=== PATIENT | female | born 1995 | race Caucasian/White ===

== ENCOUNTER 2019-01-29 04:11 | Emergency (ER) | payer OTHER ==
[2019-01-29 04:22] VITALS: RESP 18
[2019-01-29] MEDS ORDERED: diphenhydrAMINE 50 MG/ML 1 ML VIAL IVP STA (04:33)
[2019-01-29] MEDS ORDERED: KETOROLAC 30 MG/ML 1 ML VIAL IVP STA (04:33)
[2019-01-29] MEDS ORDERED: AMOXIC-POT CLAV 875-125MG 1 EACH TAB PO STA (04:34)
--- NOTE | 2019-01-29 04:39 | ED ---
ENT HPI - General Chief complaint: Dental/Oral Stated complaint: Oral Pain/Migraine Time Seen by Provider: 01/29/19 04:24 Source: patient Mode of arrival: ambulatory Limitations: no limitations - History of Present Illness Initial comments: This patient is 23-year-old woman who presents to be evaluated for dental pain and a headache she believes is related to the dental pain. She states that things started a few days ago with left mandibular tooth pain. She states that she does know she has a tooth fracture and that this tooth started hurting numb er days ago. She states she also has been told she has impacted wisdom tooth. She states that she does have follow-up scheduled with the dentist but the pain became more severe over the course tonight. She denies fever or chills. No eye or vision symptoms. MD complaint: tooth pain -: days(s) Location: tooth # (19) Severity: severe Quality: aching Consistency: constant Improves with: none Worsens with: none Associated Symptoms: toothache - Related Data Previous Rx's Medication Instructions Recorded Amoxicillin 875 mg PO Q12HR #14 tablet 01/29/19 traMADol HCl [Ultram] 50 mg PO Q6H PRN #15 tab 01/29/19 Allergies Allergy/AdvReac Type Severity Reaction Status Date / Time No Known Allergies Allergy Verified 01/29/19 04:22 Review of Systems ROS Statement: Those systems with pertinent positive or pertinent negative responses have been documented in the HPI. ROS Other: All systems not noted in ROS Statement are negative. Constitutional: Denies: fever, chills Eyes: Denies: eye pain, vision change ENT: Reports: dental pain. Denies: ear pain, throat pain Respiratory: Denies: cough, dyspnea Cardiovascular: Denies: chest pain, palpitations Gastrointestinal: Denies: abdominal pain, vomiting Neurological: Reports: as per HPI, headache. Denies: weakness, numbness, paresthesias, confusion Past Medical History Past Medical History: Seizure Disorder History of Any Multi-Drug Resistant Organisms: None Reported Past Surgical History: No Surgical Hx Reported Past Psychological History: No Psychological Hx Reported Smoking Status: Never smoker Past Alcohol Use History: None Reported Past Drug Use History: None Reported General Exam Limitations: no limitations General appearance: alert, in no apparent distress Head exam: Present: atraumatic, normocephalic, normal inspection Eye exam: Present: normal appearance, PERRL, EOMI. Absent: scleral icterus, conjunctival injection, nystagmus ENT exam: Present: normal oropharynx, other (caries to #19. No abscess.) Neck exam: Present: normal inspection, full ROM. Absent: tenderness, meningismus Neurological exam: Present: alert, oriented X3, CN II-XII intact. Absent: motor sensory deficit Skin exam: Present: warm, dry, intact, normal color. Absent: rash Course Vital Signs 01/29/19 04:20 Temperature 97.8 F Pulse Rate 77 Respiratory 18 Rate Blood Pressure 136/81 O2 Sat by Pulse 98 Oximetry Disposition Clinical Impression: Toothache Disposition: HOME SELF-CARE Condition: Good Instructions (If sedation given, give patient instructions): Toothache (ED) Prescriptions: Amoxicillin 875 mg PO Q12HR #14 tablet traMADol HCl [Ultram] 50 mg PO Q6H PRN #15 tab PRN Reason: Pain Is patient prescribed a controlled substance at d/c from ED?: No Referrals: None,Stated [Primary Care Provider] - 1-2 days
[2019-01-29 06:00] VITALS: BP 106/70; PULSE 72; TEMP 98.3
== END 2019-01-29 05:59 | disposition home or self-care (01) ==
LOC: EC 04:11
DX: K08.89 Other specified disorders of teeth and supporting structures (principal); K13.79 Other lesions of oral mucosa; R51 Headache
CPT/HCPCS: 99283; 96374; 96375; J1200; J1885

== ENCOUNTER 2019-02-03 13:23 | Emergency (ER) | payer OTHER ==
[2019-02-03 14:18] VITALS: RESP 18
[2019-02-03] MEDS ORDERED: Acetaminophen-Codeine 300-30mg TAB PO STA (15:39)
--- NOTE | 2019-02-03 15:52 | ED ---
General Adult HPI - General Chief complaint: Dental/Oral Stated complaint: Dental Pain Time Seen by Provider: 02/03/19 15:25 Source: patient, RN notes reviewed, old records reviewed Mode of arrival: ambulatory Limitations: no limitations - History of Present Illness Initial comments: 23-year-old female patient presented to ED for dental pain. Patient reports that she was initially seen here 5 days ago and started on amoxicillin and given tramadol for pain. Patient was that she didn't have pain. Patient reported that she lasted from approximately 6 hours ago. Denies any other complaints today. Denies a chance being . Patient does report that she has an appointment with a dentist next week. Systemic: Pt denies fatigue, fever/chills, rash. Pt denies weakness, night sweats, weight loss. Neuro: Pt denies headache, visual disturbances, syncope or pre-syncope. HEENT: Pt denies ocular discharge or irritation, otalgia, rhinorrhea, pharyn gitis or notable lymphadenopathy. Cardiopulmonary: Pt denies chest pain, SOB, heart palpitations, dyspnea on exertion. Abdominal/GI: Pt denies abdominal pain, n/v/d. : Pt denies dysuria, burning w/ urination, frequency/urgency. Denies new onset urinary or bowel incontinence. MSK: Pt denies myalgia, loss of strength or function in extremities. Neuro: Pt denies new onset weakness, paresthesias. - Related Data Previous Rx's Medication Instructions Recorded Amoxicillin 875 mg PO Q12HR #14 tablet 01/29/19 traMADol HCl [Ultram] 50 mg PO Q6H PRN #15 tab 01/29/19 Allergies Allergy/AdvReac Type Severity Reaction Status Date / Time No Known Allergies Allergy Verified 01/29/19 04:22 Review of Systems ROS Statement: Those systems with pertinent positive or pertinent negative responses have been documented in the HPI. ROS Other: All systems not noted in ROS Statement are negative. Past Medical History Past Medical History: Seizure Disorder History of Any Multi-Drug Resistant Organisms: None Reported Past Surgical History: No Surgical Hx Reported Past Psychological History: No Psychological Hx Reported Smoking Status: Never smoker Past Alcohol Use History: None Reported Past Drug Use History: None Reported General Exam - General Exam Comments Initial Comments: Constitutional: NAD, AOX3, Pt has pleasant affect. HEENT: NC/AT, trachea midline, neck supple, no lymphadenopathy. Posterior pharynx non erythematous, without exudates. External ears appear normal, without discharge. Mucous membranes moist. Eyes PERRLA, EOM intact. There is no scleral icterus. No pallor noted. Dental carry noted that 18th and 19th teeth. Cardiopulmonary: RRR, no murmurs, rubs or gallops, no JVD noted. Lungs CTAB in anterior and posterior mike. No peripheral edema. Abdominal exam: Abdomen soft and non-distended. Abdomen non-tender to palpation in all 4 quadrants. Bowel sounds active in LLQ. No hepatosplenomegaly. No ecchymosis Neuro: CN II-XII grossly intact. No nuchal rigidity. No raccon eyes, no hoffman sign, no hemotympanum. No cervical spinal tenderness. MSK: No posterior calf tenderness bilaterally, homans sign negative bilaterally. Posterior tibialis and radial pulse +2 bilaterally. Sensation intact in upper and lower extremities. Full active ROM in upper and lower extremities, 5/5 stregnth. Limitations: no limitations Course Vital Signs 02/03/19 14:15 Temperature 98.0 F Pulse Rate 71 Respiratory 18 Rate Blood Pressure 123/87 O2 Sat by Pulse 94 L Oximetry Medical Decision Making - Medical Decision Making 23-year-old female patient presents with dental pain. Patient vital signs stable, afebrile. Physical exam displayed caries. Patient currently still taking amoxicillin. She missed one dose of Tylenol 3 here. Patient advised to use dental putty to cover exposed nerve root. Patient will continue taking amoxicllin and follow up with dentist as scheduled. Return to ER if condition worsens. Case discussed with Dr. Henderson. Disposition Clinical Impression: Pain, dental Disposition: HOME SELF-CARE Condition: Stable Instructions (If sedation given, give patient instructions): Toothache (ED) Additional Instructions: Patient to adhere to previously discussed treatment plan and will take medication(s) as directed. Patient to follow up with PCP in 1-2 days. Patient to return to ED if symptoms do not improve. Follow-up with dentist as scheduled. Return to ER if condition worsens. Is patient prescribed a controlled substance at d/c from ED?: No Referrals: None,Stated [Primary Care Provider] - 1-2 days
[2019-02-03 16:06] VITALS: BP 126/84; PULSE 62; TEMP 97.8
== END 2019-02-03 16:04 | disposition home or self-care (01) ==
LOC: EC 13:23
DX: K02.9 Dental caries, unspecified (principal)
CPT/HCPCS: 99283

== ENCOUNTER 2021-10-12 23:39 | Emergency (ER) | payer OTHER ==
[2021-10-12 23:57] VITALS: RESP 18
--- NOTE | 2021-10-13 00:23 | ED ---
Psych HPI - General Source: patient, RN notes reviewed, old records reviewed, Caregiver (Mom is at bedside) Mode of arrival: ambulatory Limitations: no limitations - History of Present Illness MD Complaint: feels depressed -: week(s) Associated Psychiatric Symptoms: depression, racing thoughts History of same: Yes Quality: constant Improves With: none Worsens With: none Context: not taking psychiatric medications Associated Symptoms: denies other symptoms Treatments Prior to Arrival: placed on mental health hold <Harris Gandhi - Last Filed: 10/13/21 06:34> <Harris Roman - Last Filed: 10/14/21 14:44> - General Chief Complaint: Psychiatric Symptoms Stated Complaint: mental health Time Seen by Provider: 10/13/21 00:18 - History of Present Illness Initial Comments: This is a 26-year-old female to the ER for evaluation. Patient does admit to depression. Patient states she is going through a breakup is making her life much more difficult. Patient admitted having a difficult day difficult few days and made multiple comments to her mother about needing out. (Harris Gandhi) - Related Data Home Medications Medication Instructions Recorded Confirmed No Known Home Medications 10/13/21 10/13/21 Allergies Allergy/AdvReac Type Severity Reaction Status Date / Time No Known Allergies Allergy Verified 10/13/21 12:34 Review of Systems ROS Other: All systems not noted in ROS Statement are negative. <Harris Gandhi - Last Filed: 10/13/21 06:34> ROS Other: All systems not noted in ROS Statement are negative. <Harris Roman - Last Filed: 10/14/21 14:44> ROS Statement: Those systems with pertinent positive or pertinent negative responses have been documented in the HPI. Past Medical History Past Medical History: Seizure Disorder History of Any Multi-Drug Resistant Organisms: None Reported Past Surgical History: No Surgical Hx Reported Past Psychological History: No Psychological Hx Reported Smoking Status: Never smoker Past Alcohol Use History: Rare Past Drug Use History: None Reported <Harris Gandhi - Last Filed: 10/13/21 06:34> General Exam General appearance: alert, in no apparent distress Head exam: Present: atraumatic, normocephalic, normal inspection Eye exam: Present: normal appearance, PERRL, EOMI. Absent: scleral icterus, conjunctival injection, periorbital swelling ENT exam: Present: normal exam, mucous membranes moist Neck exam: Present: normal inspection. Absent: tenderness, meningismus, lymphadenopathy Respiratory exam: Present: normal lung sounds bilaterally. Absent: respiratory distress, wheezes, rales, rhonchi, stridor Cardiovascular Exam: Present: regular rate, normal rhythm, normal heart sounds. Absent: systolic murmur, diastolic murmur, rubs, gallop, clicks GI/Abdominal exam: Present: soft, normal bowel sounds. Absent: distended, tenderness, guarding, rebound, rigid Extremities exam: Present: normal inspection, full ROM, normal capillary refill. Absent: tenderness, pedal edema, joint swelling, calf tenderness Back exam: Present: normal inspection Neurological exam: Present: alert, oriented X3, CN II-XII intact Psychiatric exam: Present: normal affect, normal mood Skin exam: Present: warm, dry, intact, normal color. Absent: rash <Harris Gandhi - Last Filed: 10/13/21 06:34> Course <Harris Gandhi - Last Filed: 10/13/21 06:34> Vital Signs 10/12/21 10/13/21 23:50 18:09 Temperature 98.7 F Pulse Rate 90 74 Respiratory 18 18 Rate Blood Pressure 105/79 106/71 O2 Sat by Pulse 98 95 Oximetry - Reevaluation(s) Reevaluation #1: 10/13/21 01:04 Medical record is reviewed Medical clear for psychiatric evaluation (Harris Gandhi) Reevaluation #2: 10/13/21 06:35 Patient will need to be transferred for inpatient psychiatric treatment (Harris Gandhi) Medical Decision Making <Harris Gandhi - Last Filed: 10/13/21 06:34> - Lab Data Result diagrams: 10/13/21 06:55 10/13/21 06:55 <Harris Roman - Last Filed: 10/14/21 14:44> - Medical Decision Making 26-year-old female seen and evaluated by psychiatry, patient be admitted for psychiatric evaluation and treatment (Harris Gandhi) EPS evaluated the patient and between the patient the mother and EPS came up with a safety plan everybody was in agreement with patient will go home to live with the mother. (Harris Roman) - Lab Data Lab Results 10/13/21 10/13/21 10/13/21 Range/Units 04:50 06:55 06:55 WBC 4.9 (3.8-10.6) k/uL RBC 4.37 (3.80-5.40) m/uL Hgb 12.9 (11.4-16.0) gm/dL Hct 38.4 (34.0-46.0) % MCV 87.8 (80.0-100.0) fL MCH 29.5 (25.0-35.0) pg MCHC 33.6 (31.0-37.0) g/dL RDW 12.5 (11.5-15.5) % Plt Count 162 (150-450) k/uL MPV 9.4 Sodium (137-145) mmol/L Potassium (3.5-5.1) mmol/L Chloride (98-107) mmol/L Carbon Dioxide (22-30) mmol/L Anion Gap mmol/L BUN (7-17) mg/dL Creatinine (0.52-1.04) mg/dL Est GFR (CKD-EPI)AfAm (>60 ml/min/1.73 sqM) Est GFR (CKD-EPI)NonAf (>60 ml/min/1.73 sqM) Glucose (74-99) mg/dL Calcium (8.4-10.2) mg/dL Total Bilirubin (0.2-1.3) mg/dL AST (14-36) U/L ALT (4-34) U/L Alkaline Phosphatase (38-126) U/L Total Protein (6.3-8.2) g/dL Albumin (3.5-5.0) g/dL Urine Color Yellow Urine Appearance Clear (Clear) Urine pH 6.0 (5.0-8.0) Ur Specific [place] 1.026 (1.001-1.035) Urine Protein Trace H (Negative) Urine Glucose (UA) Negative (Negative) Urine Ketones Negative (Negative) Urine Blood Negative (Negative) Urine Nitrite Negative (Negative) Urine Bilirubin Negative (Negative) Urine Urobilinogen 2.0 (<2.0) mg/dL Ur Leukocyte Esterase Negative (Negative) Urine Opiates Screen Not Detected (NotDetected) Ur Oxycodone Screen Not Detected (NotDetected) Urine Methadone Screen Not Detected (NotDetected) Ur Propoxyphene Screen Not Detected (NotDetected) Ur Barbiturates Screen Not Detected (NotDetected) U Tricyclic Antidepress Not Detected (NotDetected) Ur Phencyclidine Scrn Not Detected (NotDetected) Ur Amphetamines Screen Not Detected (NotDetected) U Methamphetamines Scrn Not Detected (NotDetected) U Benzodiazepines Scrn Not Detected (NotDetected) Urine Cocaine Screen Not Detected (NotDetected) U Marijuana (THC) Screen Not Detected (NotDetected) Coronavirus (PCR) Not Detected (Not Detectd) 10/13/21 Range/Units 06:55 WBC (3.8-10.6) k/uL RBC (3.80-5.40) m/uL Hgb (11.4-16.0) gm/dL Hct (34.0-46.0) % MCV (80.0-100.0) fL MCH (25.0-35.0) pg MCHC (31.0-37.0) g/dL RDW (11.5-15.5) % Plt Count (150-450) k/uL MPV Sodium 140 (137-145) mmol/L Potassium 3.4 L (3.5-5.1) mmol/L Chloride 106 (98-107) mmol/L Carbon Dioxide 24 (22-30) mmol/L Anion Gap 10 mmol/L BUN 14 (7-17) mg/dL Creatinine 0.75 (0.52-1.04) mg/dL Est GFR (CKD-EPI)AfAm >90 (>60 ml/min/1.73 sqM) Est GFR (CKD-EPI)NonAf >90 (>60 ml/min/1.73 sqM) Glucose 96 (74-99) mg/dL Calcium 8.9 (8.4-10.2) mg/dL Total Bilirubin 0.4 (0.2-1.3) mg/dL AST 15 (14-36) U/L ALT 8 (4-34) U/L Alkaline Phosphatase 57 (38-126) U/L Total Protein 6.8 (6.3-8.2) g/dL Albumin 4.0 (3.5-5.0) g/dL Urine Color Urine Appearance (Clear) Urine pH (5.0-8.0) Ur Specific [place] (1.001-1.035) Urine Protein (Negative) Urine Glucose (UA) (Negative) Urine Ketones (Negative) Urine Blood (Negative) Urine Nitrite (Negative) Urine Bilirubin (Negative) Urine Urobilinogen (<2.0) mg/dL Ur Leukocyte Esterase (Negative) Urine Opiates Screen (NotDetected) Ur Oxycodone Screen (NotDetected) Urine Methadone Screen (NotDetected) Ur Propoxyphene Screen (NotDetected) Ur Barbiturates Screen (NotDetected) U Tricyclic Antidepress (NotDetected) Ur Phencyclidine Scrn (NotDetected) Ur Amphetamines Screen (NotDetected) U Methamphetamines Scrn (NotDetected) U Benzodiazepines Scrn (NotDetected) Urine Cocaine Screen (NotDetected) U Marijuana (THC) Screen (NotDetected) Coronavirus (PCR) (Not Detectd) Disposition Is patient prescribed a controlled substance at d/c from ED?: No <Harris Gandhi - Last Filed: 10/13/21 06:34> Is patient prescribed a controlled substance at d/c from ED?: No Time of Disposition: 14:02 <Harris Roman - Last Filed: 10/14/21 14:44> Clinical Impression: Acute anxiety, Depression, Suicidal ideation, Adjustment reaction of adult life, Grief Disposition: HOME SELF-CARE Referrals: Nonstaff,Physician [Primary Care Provider] - 1-2 days
[2021-10-13] MEDS ORDERED: ONDANSETRON 4 MG TAB PO STA (01:00)
[2021-10-13 07:23] LABS: HCT 38.4 % (34.0-46.0); HGB 12.9 gm/dL (11.4-16.0); MCH 29.5 pg (25.0-35.0); MCHC 33.6 g/dL (31.0-37.0); MCV 87.8 fL (80.0-100.0); Mean Platelet Volume 9.4; Platelet Count 162 k/uL (150-450); RBC 4.37 m/uL (3.80-5.40); RDW 12.5 % (11.5-15.5); WBC 4.9 k/uL (3.8-10.6)
[2021-10-13 07:29] LABS: ALT 8 U/L (4-34); AST 15 U/L (14-36); African American GFR (CKD) >90 (>60 ml/min/1.73 sqM); Alkaline Phosphatase 57 U/L (38-126); Anion Gap 10 mmol/L; Blood Urea Nitrogen 14 mg/dL (7-17); Calcium 8.9 mg/dL (8.4-10.2); Carbon Dioxide 24 mmol/L (22-30); Chloride 106 mmol/L (98-107); Glucose 96 mg/dL (74-99); Non-African American GFR(CKD) >90 (>60 ml/min/1.73 sqM); Potassium 3.4 mmol/L (3.5-5.1); Sodium 140 mmol/L (137-145); Total Bilirubin 0.4 mg/dL (0.2-1.3); Total Protein 6.8 g/dL (6.3-8.2)
[2021-10-13 07:49] LABS: Appearance,Urine Clear (Clear); Bilirubin,Urine Negative (Negative); Blood,Urine Negative (Negative); Color,Urine Yellow; Glucose,Urine (UA) Negative (Negative); Ketones,Urine Negative (Negative); Leukocyte Esterase,Urine Negative (Negative); Nitrite,Urine Negative (Negative); Protein,Urine Trace (Negative); Specific Gravity,Urine 1.026 (1.001-1.035)
[2021-10-13 09:40] LABS: Amphetamine Screen,Urine Not Detected (NotDetected); Barbiturate Screen,Urine Not Detected (NotDetected); Benzodiazepines Screen,Urine Not Detected (NotDetected); Cocaine Screen,Urine Not Detected (NotDetected); Methadone Screen, Urine Not Detected (NotDetected); Opiate Screen,Urine Not Detected (NotDetected); Oxycodone Screen, Urine Not Detected (NotDetected); Phencyclidine Screen,Urine Not Detected (NotDetected); Tricyclic Antidepressant,Urine Not Detected (NotDetected); Urn Cannabinoid Scrn Not Detected (NotDetected)
[2021-10-13] MEDS ORDERED: LORazepam 1 MG TAB PO ONE (19:15)
[2021-10-14] MEDS ORDERED: LORazepam 1 MG TAB PO STA ×2 (14:41)
[2021-10-14 17:21] VITALS: BP 108/72; PULSE 79; TEMP 98.4
== END 2021-10-14 15:10 | disposition home or self-care (01) ==
LOC: EC 23:39
DX: F32.A Depression, unspecified (principal); R45.851 Suicidal ideations; F43.20 Adjustment disorder, unspecified; F41.9 Anxiety disorder, unspecified; Z20.822 Contact with and (suspected) exposure to COVID-19
CPT/HCPCS: 36415; 80053; 80306; 81003; 82075; 85027; 87635; 99284

== ENCOUNTER 2021-11-19 14:19 | Inpatient (IN) | payer MEDICAID, OTHER ==
--- NOTE | 2021-11-19 15:10 | ED ---
General Adult HPI - General Chief complaint: Psychiatric Symptoms Stated complaint: MENTAL HEALTH Time Seen by Provider: 11/19/21 14:33 Source: patient, RN notes reviewed, old records reviewed Mode of arrival: ambulatory Limitations: no limitations - History of Present Illness Initial comments: 26-year-old female presenting for mental health evaluation. Patient had contacted the EPS nurse about increased anxiety and depression. No suicidal thoughts or plan. She has not been eating and drinking well secondary to her anxiety. She is seeking mental health evaluation. - Related Data Home Medications Medication Instructions Recorded Confirmed Clobetasol 0.05% Scalp Miguelina 1 applic TOPICAL DIRECTED 11/19/21 11/19/21 Fluconazole [Diflucan] 100 mg PO DAILY 11/19/21 11/19/21 Ketoconazole [Ketoconazole 2% 1 applic TOPICAL DIRECTED 11/19/21 11/19/21 Shampoo] Allergies Allergy/AdvReac Type Severity Reaction Status Date / Time No Known Allergies Allergy Verified 11/19/21 15:31 Review of Systems ROS Statement: Those systems with pertinent positive or pertinent negative responses have been documented in the HPI. ROS Other: All systems not noted in ROS Statement are negative. Past Medical History Past Medical History: Seizure Disorder History of Any Multi-Drug Resistant Organisms: None Reported Past Surgical History: No Surgical Hx Reported Past Psychological History: No Psychological Hx Reported Smoking Status: Never smoker Past Alcohol Use History: Rare Past Drug Use History: None Reported General Exam Limitations: no limitations General appearance: alert, in no apparent distress Head exam: Present: atraumatic, normocephalic Eye exam: Present: normal appearance, PERRL ENT exam: Present: normal exam Neck exam: Present: normal inspection. Absent: tenderness, meningismus Respiratory exam: Present: normal lung sounds bilaterally. Absent: respiratory distress, wheezes Cardiovascular Exam: Present: regular rate, normal rhythm GI/Abdominal exam: Present: soft. Absent: distended, tenderness, guarding Extremities exam: Present: normal inspection, normal capillary refill Neurological exam: Present: alert, oriented X3, CN II-XII intact. Absent: motor sensory deficit Psychiatric exam: Present: depressed, anxious. Absent: suicidal ideation Skin exam: Present: warm, dry, intact Course Vital Signs 11/19/21 14:27 Temperature 98 F Pulse Rate 91 Respiratory 15 Rate Blood Pressure 141/87 O2 Sat by Pulse 97 Oximetry - Reevaluation(s) Reevaluation #1: 11/19/21 15:10 Clear for EPS evaluation. Medical Decision Making - Medical Decision Making 26-year-old female presented for anxiety depression. She does admit to having suicidal thoughts to EPS nurse. Patient's will require inpatient psychiatric treatment either at this institution or transferred. - Lab Data Result diagrams: 11/19/21 18:07 11/19/21 18:07 Lab Results 11/19/21 11/19/21 11/19/21 Range/Units 14:47 17:58 17:58 WBC (3.8-10.6) k/uL RBC (3.80-5.40) m/uL Hgb (11.4-16.0) gm/dL Hct (34.0-46.0) % MCV (80.0-100.0) fL MCH (25.0-35.0) pg MCHC (31.0-37.0) g/dL RDW (11.5-15.5) % Plt Count (150-450) k/uL MPV Neutrophils % % Lymphocytes % % Monocytes % % Eosinophils % % Basophils % % Neutrophils # (1.3-7.7) k/uL Lymphocytes # (1.0-4.8) k/uL Monocytes # (0-1.0) k/uL Eosinophils # (0-0.7) k/uL Basophils # (0-0.2) k/uL Sodium (137-145) mmol/L Potassium (3.5-5.1) mmol/L Chloride (98-107) mmol/L Carbon Dioxide (22-30) mmol/L Anion Gap mmol/L BUN (7-17) mg/dL Creatinine (0.52-1.04) mg/dL Est GFR (CKD-EPI)AfAm (>60 ml/min/1.73 sqM) Est GFR (CKD-EPI)NonAf (>60 ml/min/1.73 sqM) Glucose (74-99) mg/dL Calcium (8.4-10.2) mg/dL Total Bilirubin (0.2-1.3) mg/dL AST (14-36) U/L ALT (4-34) U/L Alkaline Phosphatase (38-126) U/L Total Protein (6.3-8.2) g/dL Albumin (3.5-5.0) g/dL Urine Color Light Yellow Urine Appearance Clear (Clear) Urine pH 5.5 (5.0-8.0) Ur Specific [place] 1.008 (1.001-1.035) Urine Protein Negative (Negative) Urine Glucose (UA) Negative (Negative) Urine Ketones 1+ H (Negative) Urine Blood Negative (Negative) Urine Nitrite Negative (Negative) Urine Bilirubin Negative (Negative) Urine Urobilinogen <2.0 (<2.0) mg/dL Ur Leukocyte Esterase Negative (Negative) Urine HCG, Qual Not Detected (Not Detectd) Urine Opiates Screen Not Detected (NotDetected) Ur Oxycodone Screen Not Detected (NotDetected) Urine Methadone Screen Not Detected (NotDetected) Ur Propoxyphene Screen Not Detected (NotDetected) Ur Barbiturates Screen Not Detected (NotDetected) U Tricyclic Antidepress Not Detected (NotDetected) Ur Phencyclidine Scrn Not Detected (NotDetected) Ur Amphetamines Screen Not Detected (NotDetected) U Methamphetamines Scrn Not Detected (NotDetected) U Benzodiazepines Scrn Not Detected (NotDetected) Urine Cocaine Screen Not Detected (NotDetected) U Marijuana (THC) Screen Not Detected (NotDetected) Coronavirus (PCR) (Not Detectd) 11/19/21 11/19/21 11/19/21 Range/Units 18:07 18:07 18:37 WBC 7.8 (3.8-10.6) k/uL RBC 5.19 (3.80-5.40) m/uL Hgb 15.0 (11.4-16.0) gm/dL Hct 44.6 (34.0-46.0) % MCV 85.9 (80.0-100.0) fL MCH 28.9 (25.0-35.0) pg MCHC 33.6 (31.0-37.0) g/dL RDW 12.0 (11.5-15.5) % Plt Count 267 (150-450) k/uL MPV 8.5 Neutrophils % 80 % Lymphocytes % 14 % Monocytes % 3 % Eosinophils % 1 % Basophils % 1 % Neutrophils # 6.3 (1.3-7.7) k/uL Lymphocytes # 1.1 (1.0-4.8) k/uL Monocytes # 0.3 (0-1.0) k/uL Eosinophils # 0.0 (0-0.7) k/uL Basophils # 0.1 (0-0.2) k/uL Sodium 138 (137-145) mmol/L Potassium 4.1 (3.5-5.1) mmol/L Chloride 100 (98-107) mmol/L Carbon Dioxide 26 (22-30) mmol/L Anion Gap 12 mmol/L BUN 8 (7-17) mg/dL Creatinine 0.64 (0.52-1.04) mg/dL Est GFR (CKD-EPI)AfAm >90 (>60 ml/min/1.73 sqM) Est GFR (CKD-EPI)NonAf >90 (>60 ml/min/1.73 sqM) Glucose 80 (74-99) mg/dL Calcium 9.6 (8.4-10.2) mg/dL Total Bilirubin 0.8 (0.2-1.3) mg/dL AST 22 (14-36) U/L ALT 16 (4-34) U/L Alkaline Phosphatase 73 (38-126) U/L Total Protein 8.0 (6.3-8.2) g/dL Albumin 4.6 (3.5-5.0) g/dL Urine Color Urine Appearance (Clear) Urine pH (5.0-8.0) Ur Specific [place] (1.001-1.035) Urine Protein (Negative) Urine Glucose (UA) (Negative) Urine Ketones (Negative) Urine Blood (Negative) Urine Nitrite (Negative) Urine Bilirubin (Negative) Urine Urobilinogen (<2.0) mg/dL Ur Leukocyte Esterase (Negative) Urine HCG, Qual (Not Detectd) Urine Opiates Screen (NotDetected) Ur Oxycodone Screen (NotDetected) Urine Methadone Screen (NotDetected) Ur Propoxyphene Screen (NotDetected) Ur Barbiturates Screen (NotDetected) U Tricyclic Antidepress (NotDetected) Ur Phencyclidine Scrn (NotDetected) Ur Amphetamines Screen (NotDetected) U Methamphetamines Scrn (NotDetected) U Benzodiazepines Scrn (NotDetected) Urine Cocaine Screen (NotDetected) U Marijuana (THC) Screen (NotDetected) Coronavirus (PCR) Not Detected (Not Detectd) Disposition Clinical Impression: Depression, Suicidal ideation Disposition: ADMITTED IP TO THIS HOSP Condition: Fair Is patient prescribed a controlled substance at d/c from ED?: No
[2021-11-19 16:16] LABS: Amphetamine Screen,Urine Not Detected (NotDetected); Barbiturate Screen,Urine Not Detected (NotDetected); Benzodiazepines Screen,Urine Not Detected (NotDetected); Cocaine Screen,Urine Not Detected (NotDetected); Methadone Screen, Urine Not Detected (NotDetected); Opiate Screen,Urine Not Detected (NotDetected); Oxycodone Screen, Urine Not Detected (NotDetected); Phencyclidine Screen,Urine Not Detected (NotDetected); Tricyclic Antidepressant,Urine Not Detected (NotDetected); Urn Cannabinoid Scrn Not Detected (NotDetected)
[2021-11-19 18:26] LABS: Basophils # (A) 0.1 k/uL (0-0.2); Basophils % (A) 1 %; Eosinophils % (A) 1 %; HCT 44.6 % (34.0-46.0); Lymphocytes # (A) 1.1 k/uL (1.0-4.8); Lymphocytes % (A) 14 %; MCH 28.9 pg (25.0-35.0); MCHC 33.6 g/dL (31.0-37.0); MCV 85.9 fL (80.0-100.0); Mean Platelet Volume 8.5; Monocytes # (A) 0.3 k/uL (0-1.0); Monocytes % (A) 3 %; Neutrophils # (A) 6.3 k/uL (1.3-7.7); Neutrophils % (A) 80 %; Platelet Count 267 k/uL (150-450); RBC 5.19 m/uL (3.80-5.40); WBC 7.8 k/uL (3.8-10.6)
[2021-11-19 18:32] LABS: ALT 16 U/L (4-34); AST 22 U/L (14-36); African American GFR (CKD) >90 (>60 ml/min/1.73 sqM); Albumin 4.6 g/dL (3.5-5.0); Alkaline Phosphatase 73 U/L (38-126); Anion Gap 12 mmol/L; Blood Urea Nitrogen 8 mg/dL (7-17); Calcium 9.6 mg/dL (8.4-10.2); Carbon Dioxide 26 mmol/L (22-30); Chloride 100 mmol/L (98-107); Glucose 80 mg/dL (74-99); Non-African American GFR(CKD) >90 (>60 ml/min/1.73 sqM); Potassium 4.1 mmol/L (3.5-5.1); Sodium 138 mmol/L (137-145); Total Bilirubin 0.8 mg/dL (0.2-1.3)
[2021-11-19] MEDS ORDERED: MELATONIN 3 MG TABLET PO STA (22:58)
[2021-11-20] MEDS ORDERED: ACETAMINOPHEN TAB 325 MG TAB PO PRN (00:04)
[2021-11-20] MEDS ORDERED: HALOPERIDOL LACTATE 5 MG/ML 1 ML VIAL IM PRN (00:04)
[2021-11-20] MEDS ORDERED: MAG HYDROX/AL HYDROX/SIMETH 30 ML CUP PO PRN (00:04)
[2021-11-20] MEDS ORDERED: haloperidoL 5 MG TAB PO PRN (00:06)
[2021-11-20] MEDS ORDERED: LORazepam 2 MG/ML INJ IM PRN (00:06)
[2021-11-20] MEDS: LORazepam 1 MG TAB PO PRN ×2 (00:53→14:36)
[2021-11-20] MEDS ORDERED: NICOTINE 7MG/24HR PATCH TRANSDERM SCH (09:00)
[2021-11-20 13:13] LABS: Appearance,Urine Clear (Clear); Bilirubin,Urine Negative (Negative); Blood,Urine Negative (Negative); Color,Urine Light Yellow; Glucose,Urine (UA) Negative (Negative); Ketones,Urine 1+ (Negative); Leukocyte Esterase,Urine Negative (Negative); Nitrite,Urine Negative (Negative); PH, Urine 5.5 (5.0-8.0); Protein,Urine Negative (Negative); Specific Gravity,Urine 1.008 (1.001-1.035); Urobilinogen,Urine <2.0 mg/dL (<2.0)
[2021-11-20 13:47] VITALS: BMI 16.0
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
[2021-11-20] MEDS: ESCITALOPRAM 5 MG TAB PO SCH (19:18)
[2021-11-21] MEDS: ESCITALOPRAM 5 MG TAB PO SCH (09:23)
[2021-11-21 11:16] LABS: Basophils % (A) 0 %; Eosinophils # (A) 0.1 k/uL (0-0.7); Eosinophils % (A) 1 %; HCT 43.9 % (34.0-46.0); HGB 14.4 gm/dL (11.4-16.0); Lymphocytes % (A) 17 %; MCH 28.4 pg (25.0-35.0); MCHC 32.8 g/dL (31.0-37.0); MCV 86.8 fL (80.0-100.0); Mean Platelet Volume 8.8; Monocytes # (A) 0.3 k/uL (0-1.0); Monocytes % (A) 4 %; Neutrophils # (A) 4.8 k/uL (1.3-7.7); Neutrophils % (A) 77 %; Platelet Count 261 k/uL (150-450); RBC 5.06 m/uL (3.80-5.40); RDW 12.2 % (11.5-15.5); WBC 6.3 k/uL (3.8-10.6)
[2021-11-21 11:40] LABS: ALT 14 U/L (4-34); AST 20 U/L (14-36); African American GFR (CKD) >90 (>60 ml/min/1.73 sqM); Albumin 4.4 g/dL (3.5-5.0); Alkaline Phosphatase 66 U/L (38-126); Anion Gap 11 mmol/L; Blood Urea Nitrogen 12 mg/dL (7-17); Calcium 9.5 mg/dL (8.4-10.2); Carbon Dioxide 30 mmol/L (22-30); Chloride 95 mmol/L (98-107); Glucose 118 mg/dL (74-99); Non-African American GFR(CKD) >90 (>60 ml/min/1.73 sqM); Potassium 3.8 mmol/L (3.5-5.1); Sodium 136 mmol/L (137-145); Total Bilirubin 0.9 mg/dL (0.2-1.3); Total Protein 7.8 g/dL (6.3-8.2)
[2021-11-21] MEDS: MAGNESIUM HYDROXIDE 2,400 MG/10 ML CUP PO PRN (13:18)
--- NOTE | 2021-11-21 19:52 | P.PN ---
Progress Note - Text Progress Note Date: 11/21/21 Interval History: Patient was seen in her room reading and was directable and agreeable to speak with technical document writer. She reports improving mood, sleep and appetite, but overall still reports feeling depressed. She is attending groups. At this time, patient denies any suicidal or homicidal ideations, intent or plan. Patient denies any auditory, visual hallucinations and denies any paranoia or delusions. Patient denies any side effects from the medications and has been compliant with meds. Mental Status Exam: General Appearance: Patient appears to be stated age, is dressed in hospital gown, appears disheveled and malodorous, not showered. Hair is dyed pink. Behavior: Patient is calm without any agitated behavior, still somewhat withdrawn. Speech: Patient's speech is fluent and non-pressured, speaks in very soft low tone. Mood/Affect: Patient reports her mood is improving but still depressed, affect is congruent and constricted. Suicidality/Homicidality: Patient denies having any suicidal or homicidal ideation intent or plan, so far today. Perceptions: Patient denies any visual hallucinations and denies any auditory hallucinations. Though content/process: There is no evidence of any delusional thought content and thought process is linear and goal-directed. Memory and concentration: AOX3, grossly intact for the purposes of this session Judgment and insight: Improving mildly Assessment Major depressive disorder, single episode, severe without psychotic features PLAN: -Patient is admitted under voluntary status to [facility]HU for stabilization of psychiatric symptoms and safety. Patient has signed adult voluntary form and medication consent and is placed in patient's chart. -Medications: Increase Lexapro to 10 mg daily starting tomorrow morning for depression/anxiety. -Ativan and Haldol PRN for agitation/aggression -Patient was informed of the risks, benefits and side effects of the medication and patient verbally consented to taking the medications. Patient signed med consent form and was placed in chart. -NRT - not needed, nonsmoker -SW on board for discharge planning. Encourage patient to participate in groups to work on coping skills.
[2021-11-22] MEDS: ESCITALOPRAM 10 MG TAB PO SCH (08:31)
[2021-11-22] MEDS: LORazepam 1 MG TAB PO PRN (11:43)
--- NOTE | 2021-11-22 17:36 | P.PN ---
Progress Note - Text Progress Note Date: 11/22/21 Interval History: Patient was seen in her room sleeping in the daytime and was directable and agreeable to speak with expert medical writer in the office. She reports worse mood today, reports did not sleep well last night, and has isolating to her room most of the day. She reports high anxiety, has been worrying about things beyond her control and irrational fears such as both parents dying despite both being in apparently good health. She had a panic attack this morning, required Ativan 1 mg po x 1, and reports depressed mood. At this time, patient denies any suicidal or homicidal ideations, intent or plan. Patient denies any auditory, visual hallucinations and denies any paranoia or delusions. Patient denies any side effects from the medications and has been compliant with meds. Mental Status Exam: General Appearance: Patient appears to be stated age, is dressed in black ernesto thing, appears disheveled with messy hair. Hair is dyed pink. Behavior: Patient is calm without any agitated behavior, still somewhat withdrawn. Speech: Patient's speech is fluent and non-pressured, speaks in very soft low tone. Mood/Affect: Patient reports her mood is anxious and depressed, affect is congruent and constricted. Suicidality/Homicidality: Patient denies having any suicidal or homicidal ideation intent or plan. Perceptions: Patient denies any visual hallucinations and denies any auditory hallucinations. Though content/process: There is no evidence of any delusional thought content and thought process is linear and goal-directed. Memory and concentration: AOX3, grossly intact for the purposes of this session. Judgment and insight: Improving mildly Assessment Major depressive disorder, single episode, severe without psychotic features Generalized anxiety disorder with panic attacks PLAN: -Patient is admitted under voluntary status to MHU for stabilization of psychiat chung symptoms and safety. Patient has signed adult voluntary form and medication consent and is placed in patient's chart. -Medications: Continue Lexapro 10 mg daily for depression/anxiety. Start Trazodone 50 mg QHS PRN for sleep. -Ativan and Haldol PRN for agitation/aggression -Patient was informed of the risks, benefits and side effects of the medication and patient verbally consented to taking the medications. Patient signed med consent form and was placed in chart. -NRT - not needed, nonsmoker -SW on board for discharge planning. Encourage patient to participate in groups to work on coping skills.
--- NOTE | 2021-11-22 18:38 | P.HPMEDMHU ---
History of Present Illness H&P Date: 11/22/21 Chief Complaint: Suicide idealization Patient is a 26-year-old female with a past medical history of seizure?, Anxiety and depression who was admitted to the inpatient psychiatric facility for depression anxiety and suicide idealization. Patient stated that when she came in she was having some chest pain and it resolved with Xanax. She attributes the chest pain to anxiety. Patient states that she may have had a seizure-like episode earlier in the year. She states that she was supposed to follow up with a neurologist at [facility] however has not followed up yet. She states that she has not been started on any seizure meds. Review of Systems 10 ROS reviewed and are negative except as noted in HPI Past Medical History Past Medical History: Seizure Disorder Additional Past Medical History / Comment(s): patient states last seizure was Apr/may 2021, prior to that no seizures 'for years' per patient. History of Any Multi-Drug Resistant Organisms: None Reported Past Surgical History: No Surgical Hx Reported Past Anesthesia/Blood Transfusion Reactions: No Reported Reaction Past Psychological History: No Psychological Hx Reported Smoking Status: Never smoker Past Alcohol Use History: Rare Past Drug Use History: None Reported Medications and Allergies Home Medications Medication Instructions Recorded Confirmed Type Clobetasol 0.05% Scalp Miguelina 1 applic TOPICAL DIRECTED 11/19/21 11/19/21 History Fluconazole [Diflucan] 100 mg PO DAILY 11/19/21 11/19/21 History Ketoconazole [Ketoconazole 2% 1 applic TOPICAL DIRECTED 11/19/21 11/19/21 History Shampoo] Allergies Allergy/AdvReac Type Severity Reaction Status Date / Time No Known Allergies Allergy Verified 11/19/21 15:31 Physical Exam Osteopathic Statement: *. No significant issues noted on an osteopathic structural exam other than those noted in the History and Physical/Consult. Vitals: Vital Signs Temp Pulse Resp BP 11/22/21 11:44 120 H 112/62 11/22/21 07:21 68 11/22/21 04:57 97.1 F L 132 H 12 94/48 General: [Alert and oriented, well nourished, no acute distress]. Eye: [PERRL, EOMI, normal conjunctiva]. HENT: [Normocephalic, clear tympanic membranes, normal hearing, moist oral mucosa, no scleral icterus, no sinus tenderness]. Neck: [Supple, non-tender, no carotid bruits, no JVD, no lymphadenopathy]. Lungs: [Clear to auscultation and percussion, non-labored respiration]. Heart: [Normal rate, regular rhythm, no murmur, gallop or edema]. Abdomen: [Soft, non-tender, non-distended, normal bowel sounds, no masses]. Musculoskeletal: [Normal range of motion and strength, no tenderness or swelling]. Skin: [Skin is warm, dry and pink, no rashes or lesions]. Neurologic: [Awake, alert, and oriented X3, CN II-XII intact]. Psychiatric: [Cooperative, appropriate mood and affect]. Cranial Nerve Examination - Cranial Nerves Cranial Nerve I- Olfactory: Intact Cranial Nerve II- Optic: Intact Cranial Nerve III- Oculomotor: Intact Cranial Nerve IV- Trochlear: Intact Cranial Nerve V- Trigeminal: Intact Cranial Nerve - Abducens: Intact Cranial Nerve VII- Facial: Intact Cranial Nerve VIII- Auditory: Intact Cranial Nerve IX- Glossopharyngeal: Intact Cranial Nerve X- Vagus: Intact Cranial Nerve XI- Accessory: Intact Cranial Nerve XII- Hypoglossal: Intact Results CBC & Chem 7: 11/21/21 10:28 11/21/21 10:28 Thrombosis Risk Factor Assmnt - Choose All That Apply Any of the Below Risk Factors Present?: No Other Risk Factors: No Thrombosis Risk Factor Assessment Level: Very Low Risk Assessment and Plan Assessment: Impression suicide idealization Your psychiatric management Possible history of seizure -Patient states she was never started on seizure medications and was supposed to follow with a neurologist. Patient states that this seizure-like episode was more than 6 months ago. Currently stable and patient can follow-up with her neurologist. Patient's labs otherwise signs reviewed which are unremarkable. Thank you for the consult and please do not hesitate to call us with any questions or concerns
[2021-11-22] MEDS: traZODone HCL 50 MG TAB PO PRN (21:04)
[2021-11-23] MEDS: ESCITALOPRAM 10 MG TAB PO SCH (08:38)
[2021-11-23] MEDS ORDERED: PROPRANOLOL 10 MG TAB PO PRN (16:35)
--- NOTE | 2021-11-23 16:42 | P.PN ---
Progress Note - Text Progress Note Date: 11/23/21 Interval History: Patient was seen in her room reading and was directable and agreeable to speak with curriculum writer in the office. She reports her mood and appetite are improved today. She reports she did sleep well last night after taking Trazodone 50 mg. She reports her anxiety is less today then yesterday, but she still worries and feels overwhelmed. At this time, patient denies any suicidal or homicidal ideations, intent or plan. Patient denies any auditory, visual hallucinations and denies any paranoia or delusions. Patient denies any side effects from the medications and has been compliant with meds. Mental Status Exam: General Appearance: Patient appears to be stated age, is dressed in black clothing, hair is dyed pink and in messy bun. Behavior: Patient is calm without any agitated behavior, is much less withdrawn than previous days. Speech: Patient's speech is fluent and non-pressured, speaks in soft low tone. Mood/Affect: Patient reports her mood is "a lot better", affect is congruent and more reactive. Suicidality/Homicidality: Patient denies having any suicidal or homicidal ideation intent or plan. Perceptions: Patient denies any visual hallucinations and denies any auditory hallucinations. Though content/process: There is no evidence of any delusional thought content and thought process is linear and goal-directed. Memory and concentration: AOX3, grossly intact for the purposes of this session. Judgment and insight: Improving mildly Assessment Major depressive disorder, single episode, severe without psychotic features Generalized anxiety disorder with panic attacks PLAN: -Patient is admitted under voluntary status to MHU for stabilization of psychiatric symptoms and safety. Patient has signed adult voluntary form and medication consent and is placed in patient's chart. -Medications: Continue Lexapro 10 mg daily for depression/anxiety. Continue Trazodone 50 mg QHS PRN for sleep. Start Propranolol 10 mg BID PRN for anxiety. -Likely discharge tomorrow if she continues to stabilize. -Ativan and Haldol PRN for agitation/aggression -Patient was informed of the risks, benefits and side effects of the medication and patient verbally consented to taking the medications. Patient signed med consent form and was placed in chart. -NRT - not needed, nonsmoker -SW on board for discharge planning. Encourage patient to participate in groups to work on coping skills.
[2021-11-23 18:00] VITALS: RESP 16
[2021-11-23] MEDS: traZODone HCL 50 MG TAB PO PRN (20:53)
[2021-11-24 07:15] VITALS: TEMP 98.4
[2021-11-24 07:51] VITALS: BP 99/63; PULSE 113
[2021-11-24] MEDS: ESCITALOPRAM 10 MG TAB PO SCH (08:55)
[2021-11-24] MEDS: MAGNESIUM HYDROXIDE 2,400 MG/10 ML CUP PO PRN (08:56)
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
== END 2021-11-24 12:43 | disposition home or self-care (01) | DRG 885 ==
LOC: EC 14:19 → 3MHU 23:47
PROVIDERS: ADMIT Psychiatry & Neurology Psychiatry; ATTEND Psychiatry & Neurology Psychiatry
DX: F32.2 Major depressive disorder, single episode, severe without psychotic features (principal); R45.851 Suicidal ideations; G40.909 Epilepsy, unspecified, not intractable, without status epilepticus; F41.0 Panic disorder [episodic paroxysmal anxiety]; F41.1 Generalized anxiety disorder; Z79.899 Other long term (current) drug therapy; Z91.51 Personal history of suicidal behavior; Z20.822 Contact with and (suspected) exposure to COVID-19
CPT/HCPCS: 36415; 80053; 80306; 81003; 81025; 82075; 83036; 84443; 85025; 87635; 99284